=== PATIENT | female | born 1990 | race Hispanic/Latino ===

== ENCOUNTER 2016-11-19 15:02 | Day surgery (SDC) | payer OTHER ==
[~2016-11-19] VITALS: Ht 160 cm; Wt 52.1 kg
[~2016-11-19 15:02] MED LIST: CLARITIN10 MG PO; TORADOL10 MG PO; ZOFRAN ODT4 MG PO
[2016-11-19 16:34] LABS: HEMATOCRIT 41.9 % (36.0-46.0); MCHC 34.1 G/DL (30.0-36.0); MCV 87.8 FL (83-99); MEAN PLAT.VOLUME 11.4 uM^3 (9.5-12.4); PLATELET COUNT 241 K/uL (156-360); RBC DIS.WIDTH-CV 12.8 % (11.8-14.6); RBC DIS.WIDTH-SD 41.1 % (39-53); RED BLOOD COUNT 4.77 M/uL (3.80-5.20); WHITE BLOOD COUNT 9.1 K/uL (4.1-10.2)
[2016-11-19 16:43] LABS: CHLORIDE 104 mEq/L (99-109); POTASSIUM 4.5 mEq/L (3.7-5.4); SODIUM 139 mEq/L (136-147)
[2016-11-19 16:46] LABS: GLUCOSE 85 mg/dL (70-99)
[2016-11-19 16:47] LABS: ANION GAP 9 MEQ/L (2-14); TOTAL BILIRUBIN 0.4 mg/dL (0.0-1.0)
[2016-11-19 16:49] LABS: ALKALINE PHOSPHATASE 57 IU/L (3-129); GFR ESTIMATE (CALCULATED) > 59 mL/min/
[2016-11-19 16:50] LABS: UREA NITROGEN (BUN) 11 mg/dL (9-23)
[2016-11-19 16:59] LABS: QUANTITATIVE HCG < 4.0 MIU/ML
[2016-11-19 17:01] LABS: ADD MIUA? YES; BILIRUBIN NEGATIVE; BLOOD SMALL; COLOR STRAW ((YELLOW)); GLUCOSE (STRIP) NEGATIVE; KETONES NEGATIVE; LEUKOCYTES NEGATIVE; NITRITE NEGATIVE; PROTEIN (STRIP) NEGATIVE; SPECIFIC GRAVITY 1.009 (1.000-1.030); UROBILINOGEN 0.2 MG/DL (0.2-1.0)
[2016-11-19 17:04] LABS: BACTERIA RARE /HPF; EPITHELIAL CELLS RARE /HPF; MUCUS NONE SEEN /LPF; RED BLOOD CELLS 0-5 /HPF (0-5); UCUL ADDED? NO; WHITE BLOOD CELLS 0-5 /HPF (0-5)
[2016-11-19 17:10] LABS: LIPASE 22 U/L (1.0-51.0)
[2016-11-19 17:15] LABS: BASOPHIL COUNT 0.1 K/uL (0-0.1); EOSINOPHIL (%) 0.9 % (0-5); EOSINOPHIL COUNT 0.1 K/uL (0-0.3); IMMATURE GRANULOCYTE (%) 0.1 % (0.0-0.7); INSTRUMENT ABS NEUTROPHIL CT 6.2 K/uL; LYMPHOCYTE COUNT 2.2 K/uL (1.0-2.8); MONOCYTE (%) 6.7 % (3-12); MONOCYTE COUNT 0.6 K/uL (0-0.8); NEUTROPHIL (%) 67.4 % (45-76); NEUTROPHIL COUNT 6.2 K/uL (1.8-6.4)
[2016-11-19 22:40] VITALS: BP 106/72
[2016-11-19 23:47] VITALS: BP 106/72
[2016-11-20 04:08] VITALS: BP 92/59
[2016-11-20 06:12] VITALS: BP 101/68
[2016-11-20 07:20] VITALS: BP 94/65
[2016-11-20] MEDS ORDERED: PERCOCET 5/31 TABLET PO (08:08)
== END 2016-11-20 11:26 | disposition home or self-care (01) ==
LOC: RME 15:02 → EME 15:02 → SDC 20:52 → RME 20:52 → 2SOUTH 21:22 → 2EASTP 22:38
PROC: 0DTJ4ZZ Resection of Appendix, Percutaneous Endoscopic Approach (ICD-10-PCS; principal; 2016-11-19)
DX: K35.80 Unspecified acute appendicitis (principal)
CPT/HCPCS: 74177; 76856; 80053; 81003; 83690; 84702; 85025; 85027; 88304; 93975; 99281; 99285; G0378; J0131; J1100; J1170; J1885; J2405; J2710; J3010; J7030; J7120

== ENCOUNTER 2016-12-17 10:36 | Emergency (ER) | payer OTHER ==
[~2016-12-17] VITALS: Ht 160 cm; Wt 52.2 kg
[~2016-12-17 10:36] MED LIST changes: +PERCOCET 5/31 TABLET PO
[2016-12-17 11:32] LABS: HEMATOCRIT 39.4 % (36.0-46.0); MCH 29.7 PG (29.0-34.0); MCHC 34.3 G/DL (30.0-36.0); MCV 86.8 FL (83-99); MEAN PLAT.VOLUME 10.9 uM^3 (9.5-12.4); PLATELET COUNT 249 K/uL (156-360); RBC DIS.WIDTH-CV 12.9 % (11.8-14.6); RBC DIS.WIDTH-SD 40.4 % (39-53); RED BLOOD COUNT 4.54 M/uL (3.80-5.20); WHITE BLOOD COUNT 7.6 K/uL (4.1-10.2)
[2016-12-17 11:43] LABS: CHLORIDE 104 mEq/L (99-109); SODIUM 140 mEq/L (136-147)
[2016-12-17 11:45] LABS: GLUCOSE 78 mg/dL (70-99)
[2016-12-17 11:46] LABS: ANION GAP 9 MEQ/L (2-14)
[2016-12-17 11:47] LABS: TOTAL BILIRUBIN 0.6 mg/dL (0.0-1.0)
[2016-12-17 11:49] LABS: ALKALINE PHOSPHATASE 65 IU/L (3-129); GFR ESTIMATE (CALCULATED) > 59 mL/min/
[2016-12-17 11:50] LABS: UREA NITROGEN (BUN) 11 mg/dL (9-23)
[2016-12-17 11:58] LABS: QUANTITATIVE HCG < 4.0 MIU/ML
[2016-12-17 12:12] LABS: ADD MIUA? NO; BILIRUBIN NEGATIVE; BLOOD NEGATIVE; COLOR YELLOW ((YELLOW)); GLUCOSE (STRIP) NEGATIVE; KETONES NEGATIVE; LEUKOCYTES NEGATIVE; NITRITE NEGATIVE; PROTEIN (STRIP) 30; SPECIFIC GRAVITY 1.019 (1.000-1.030); UCUL ADDED? NO; UROBILINOGEN 0.2 MG/DL (0.2-1.0)
[2016-12-17 12:16] LABS: EOSINOPHIL (%) 1.1 % (0-5); EOSINOPHIL COUNT 0.1 K/uL (0-0.3); IMMATURE GRANULOCYTE (%) 0.3 % (0.0-0.7); INSTRUMENT ABS NEUTROPHIL CT 4.7 K/uL; MONOCYTE (%) 8.9 % (3-12); MONOCYTE COUNT 0.7 K/uL (0-0.8); NEUTROPHIL (%) 62.2 % (45-76); NEUTROPHIL COUNT 4.7 K/uL (1.8-6.4)
[2016-12-17 15:52] VITALS: BP 129/81
[2016-12-17] MEDS ORDERED: ZOFRAN ODT4 MG PO (15:57)
[2016-12-17] MEDS ORDERED: INDOCIN50 MG PO (15:57)
== END 2016-12-17 16:11 | disposition home or self-care (01) ==
LOC: EME 10:36
DX: N94.0 Mittelschmerz (principal); R35.0 Frequency of micturition; R11.0 Nausea; Z98.890 Other specified postprocedural states
CPT/HCPCS: 74177; 76856; 80053; 81003; 84702; 85025; 85027; 99281; 99284; J1885; J2405; J3010; J7030

== ENCOUNTER 2017-01-17 18:37 | Emergency (ER) | payer OTHER ==
[~2017-01-17] VITALS: Ht 160 cm; Wt 53.5 kg
[~2017-01-17 18:37] MED LIST changes: +INDOCIN50 MG PO
[2017-01-17 20:05] LABS: HEMATOCRIT 38.5 % (36.0-46.0); MCH 30.4 PG (29.0-34.0); MCHC 34.5 G/DL (30.0-36.0); MCV 88.1 FL (83-99); MEAN PLAT.VOLUME 10.8 uM^3 (9.5-12.4); PLATELET COUNT 282 K/uL (156-360); RBC DIS.WIDTH-CV 13.3 % (11.8-14.6); RBC DIS.WIDTH-SD 43.2 % (39-53); RED BLOOD COUNT 4.37 M/uL (3.80-5.20); WHITE BLOOD COUNT 8.1 K/uL (4.1-10.2)
[2017-01-17 20:15] LABS: CHLORIDE 105 mEq/L (99-109); POTASSIUM 3.7 mEq/L (3.7-5.4); SODIUM 139 mEq/L (136-147)
[2017-01-17 20:16] LABS: GLUCOSE 90 mg/dL (70-99)
[2017-01-17 20:18] LABS: ANION GAP 8 MEQ/L (2-14)
[2017-01-17 20:20] LABS: GFR ESTIMATE (CALCULATED) > 59 mL/min/
[2017-01-17 20:21] LABS: UREA NITROGEN (BUN) 9 mg/dL (9-23)
[2017-01-17 20:28] LABS: QUANTITATIVE HCG 3737.9 MIU/ML
[2017-01-17] MEDS ORDERED: PERCOCET 5/31 TABLET PO (22:28)
[2017-01-17 22:43] VITALS: BP 118/71
== END 2017-01-17 23:14 | disposition home or self-care (01) ==
LOC: EME 18:37
PROVIDERS: Physician Assistant
DX: O03.4 Incomplete spontaneous abortion without complication (principal); Z3A.01 Less than 8 weeks gestation of pregnancy
CPT/HCPCS: 76801; 80048; 84702; 85027; 86850; 86900; 86901; 99281; 99284

== ENCOUNTER 2017-12-09 01:10 | Outpatient (CLI) | payer OTHER ==
[~2017-12-09 01:10] MED LIST changes: +IRON325 M1 PO; +PRENATAL TABLE1 EAC3 PO
[2017-12-09 01:45] VITALS: BP 110/68
== END 2017-12-09 03:00 | disposition home or self-care (01) ==
LOC: LDRP-OP 01:10 → 2WEST 01:11
DX: O26.893 Other specified pregnancy related conditions, third trimester (principal); Z3A.38 38 weeks gestation of pregnancy
CPT/HCPCS: 59025; G0378

== ENCOUNTER 2017-12-13 04:51 | Inpatient (IN) | payer OTHER ==
[2017-12-13] VITALS (8 sets, daily range): BP systolic 88–110; BP diastolic 57–78
[~2017-12-13] VITALS: Ht 157.5 cm; Wt 73.5 kg
[2017-12-13] MEDS ORDERED: METOCLOPRAMIDE H5 MG PO (05:19)
[2017-12-13] MEDS ORDERED: FEROSUL325 MG PO (05:21)
[2017-12-13 05:34] LABS: HEMATOCRIT 36.9 % (36.0-46.0); HEMOGLOBIN 12.9 G/DL (11.9-15.5); MCH 31.1 PG (29.0-34.0); MCV 88.9 FL (83-99); PLATELET COUNT 188 K/uL (156-360); RBC DIS.WIDTH-CV 17.1 % (11.8-14.6); RBC DIS.WIDTH-SD 55.4 % (39-53); RED BLOOD COUNT 4.15 M/uL (3.80-5.20); WHITE BLOOD COUNT 9.6 K/uL (4.1-10.2)
[2017-12-13 09:05] LABS: BENZODIAZEPINES, URINE SCREEN Negative (200 ng/mL)
[2017-12-14 03:13] VITALS: BP 98/72
[2017-12-14 07:06] LABS: BASOPHIL (%) 0.3 % (0-1); EOSINOPHIL (%) 0.2 % (0-5); HEMATOCRIT 30.3 % (36.0-46.0); IMMATURE GRANULOCYTE (%) 0.4 % (0.0-0.7); LYMPHOCYTE (%) 19.3 % (15-42); LYMPHOCYTE COUNT 2.5 K/uL (1.0-2.8); MCH 30.6 PG (29.0-34.0); MCV 89.9 FL (83-99); MONOCYTE COUNT 1.3 K/uL (0-0.8); NEUTROPHIL (%) 69.8 % (45-76); NEUTROPHIL COUNT 8.9 K/uL (1.8-6.4); PLATELET COUNT 161 K/uL (156-360); RBC DIS.WIDTH-CV 16.9 % (11.8-14.6); RBC DIS.WIDTH-SD 55.3 % (39-53); RED BLOOD COUNT 3.37 M/uL (3.80-5.20); WHITE BLOOD COUNT 12.8 K/uL (4.1-10.2)
[2017-12-14 07:08] LABS: HEMOGLOBIN 10.3 G/DL (11.9-15.5)
[2017-12-14 07:49] VITALS: BP 95/63
[2017-12-14 15:23] VITALS: BP 103/68
[2017-12-14 19:18] VITALS: BP 96/60
[2017-12-14 23:18] VITALS: BP 100/60
[2017-12-15 03:30] VITALS: BP 110/61
[2017-12-15 08:05] VITALS: BP 101/62
[2017-12-15] MEDS ORDERED: DOCUSATE SODIU100 MG PO (10:12)
[2017-12-15] MEDS ORDERED: IBUPROFEN800 MG PO (10:12)
[2017-12-15] MEDS ORDERED: ENDOCET 5-3251 EACH PO (10:12)
== END 2017-12-15 15:20 | disposition home or self-care (01) | DRG 765 ==
LOC: 2WEST 04:51 → 2SOUTH 12:17 → 2WEST 12-15 15:20
PROVIDERS: Obstetrics & Gynecology
PROC: 10D00Z1 Extraction of Products of Conception, Low, Open Approach (ICD-10-PCS; principal; 2017-12-13)
DX: O34.211 Maternal care for low transverse scar from previous cesarean delivery (principal); O99.02 Anemia complicating childbirth; O69.81X0 Labor and delivery complicated by cord around neck, without compression, not applicable or unspecified; O99.824 Streptococcus B carrier state complicating childbirth; Z3A.39 39 weeks gestation of pregnancy; Z37.0 Single live birth; D62 Acute posthemorrhagic anemia; O99.89 Other specified diseases and conditions complicating pregnancy, childbirth and the puerperium; N73.6 Female pelvic peritoneal adhesions (postinfective)
CPT/HCPCS: 80306 90; 85025; 85027; 86850; 86900; 86901; 87086; J0330; J0690; J1100; J1200; J2274; J2405; J3010; J7120